=== PATIENT | male | born 1985 | race Caucasian/White ===

== ENCOUNTER 2019-11-12 11:24 | Inpatient (IN) | payer OTHER ==
--- NOTE | 2019-11-12 11:43 | BHS.RME ---
Substance Use & Tx History - Substance Use History Alcohol Substance amount: 6 pints Hennesy, 2 x 40 ounce beer Frequency of use: Daily Date of Last Use: 11/11/19 Cannabis Substance amount: 2-3 blunts Frequency of use: Daily Substance route: Smoking Date of Last Use: 11/10/19 Nicotine Substance amount: 2 cigs Frequency of use: Daily Date of Last Use: 11/12/19 Physical/Psych/Mental Status - Behavior General Behavior: Decreased activity - Cooperativeness Cooperativeness: Cooperative - Thinking Thought Processes: Tight Thought content: Future oriented - Physical Health Problems Is patient presently having any pain?: Yes (headache, when he left [facility], syncope) Does patient presently have any injuries (include location): No Does patient currently have a fever: No Is patient : No CIWA Nausea/Vomitin-Mild Nausea/No Vomiting Muscle Tremors: 4-Moderate,w/Arms Extend Anxiety: 4-Mod. Anxious/Guarded Agitation: 1-Slight > Activity Paroxysmal Sweats: No Perspiration Orientation: 0-Oriented Tacttile Disturbances: 0-None Auditory Disturbances: 1-Very Mild Visual Disturbances: 2-Mild Sensitivity Headache: 5-Severe CIWA-Ar Total Score: 18
--- NOTE | 2019-11-12 12:50 | HP ---
CIWA Score Nausea/Vomitin-Mild Nausea/No Vomiting Muscle Tremors: 4-Moderate,w/Arms Extend Anxiety: 4-Mod. Anxious/Guarded Agitation: 1-Slight > Activity Paroxysmal Sweats: No Perspiration Orientation: 0-Oriented Tacttile Disturbances: 0-None Auditory Disturbances: 1-Very Mild Visual Disturbances: 2-Mild Sensitivity Headache: 5-Severe CIWA-Ar Total Score: 18 - Admission Criteria OASAS Guidelines: Admission for Medically Managed Detox: Requires at least one of the followin. CIWA greater than 12 2. Seizures within the past 24 hours 3. Delirium tremens within the past 24 hours 4. Hallucinations within the past 24 hours 5. Acute intervention needed for co occurring medical disorder 6. Acute intervention needed for co occurring psychiatric disorder 7. Severe withdrawal that cannot be handled at a lower level of care (continued vomiting, continued diarrhea, abnormal vital signs) requiring intravenous medication and/or fluids 8. Admitting History and Physical - Admission Chief Complaint: Mr. Saldana is a 34 yo gentleman who presents to [facility] stating he is here "for detox, alcohol". History of Present Illness: Mr. Saldana is a 34 yo gentleman who presents to [facility] stating he is here "for detox, alcohol". He has had no prior admission to this or any other detox facility. PMH: ADHD PSH: none Psych: Bipolar on Remeron, Depakote: last dose last year. NO SI Substance use history Alcohol: 6 pints Henessey, Beer 2x40 ounce, daily, first use at the age of 16 y , last use yesterday. Black out last night. Was taken to [facility]. Marijuana: daily, 2-3 blunts, first use age 15, last use yesterday Nicotine: 2 cigs per day, last smoke yesterday Denies; opiate use Review of [facility] records 11/12: records: alcohol intoxication and abdominal pain. K 5.2, EtOH: 190, low RBC 4.5, high neut 79.2, lymph 12.8 (low) . CT abdomen: splenule. Unremarkable pancreas, kidneys, gallbladder, urinary bladder. Nonobstucted loops of bowel Admission ROS BHS - HPI Exam Limitations: No Limitations - Ebola screening Have you traveled outside of the country in the last 21 days: No Have you had contact with anyone from an Ebola affected area: No Have you been sick,other than usual withdrawal symptoms: No Do you have a fever: No - Review of Systems Constitutional: Unintentional Wgt. Loss (70 lb weight loss in one year) EENT: reports: Eye Pain Respiratory: reports: No Symptoms reported Cardiac: reports: No Symptoms Reported GI: reports: Nausea, Vomiting : reports: No Symptoms Reported Musculoskeletal: reports: Back Pain, Joint Pain Integumentary: reports: No Symptoms Reported Neuro: reports: Headache Endocrine: reports: No Symptoms Reported Hematology: reports: No Symptoms Reported Psychiatric: reports: No Sypmtoms Reported Patient History - Patient Medical History Hx Anemia: No Hx Asthma: No Hx Chronic Obstructive Pulmonary Disease (COPD): No Hx Cancer: No Hx Cardiac Disorders: No Hx Congestive Heart Failure: No Hx Hypertension: No Hx Hypercholesterolemia: No Hx Pacemaker: No HX Cerebrovascular Accident: No Hx Seizures: No Hx Dementia: No Hx Diabetes: No Hx Gastrointestinal Disorders: Yes (abdominal pain presently) Hx Liver Disease: No Hx Genitourinary Disorders: No Hx Sexually Transmitted Disorders: No Hx Renal Disease (ESRD): No Hx Thyroid Disease: No Hx Human Immunodeficiency Virus (HIV): No Hx Hepatitis C: No Hx Depression: No Hx Suicide Attempt: No Hx Bipolar Disorder: Yes (Remeron and Depakote in 2019) Hx Schizophrenia: No Other Medical History: ADHD, under control, off meds - Patient Surgical History Past Surgical History: No - PPD History PPD to be Administered?: Yes - Smoking Cessation Smoking history: Current every day smoker Have you smoked in the past 12 months: Yes Aproximately how many cigarettes per day: 2 Initiated information on smoking cessation: Yes 'Breaking Loose' booklet given: 11/12/19 - Substances abused Alcohol Substance route: Oral Amount used: 6 pints Luanne Age of first use: 16 Date of last use: 11/11/19 Marijuana/Hashish Frequency: Daily Amount used: 2-3 blunts Age of first use: 15 Date of last use: 11/11/19 Admission Physical Exam [facility] - Physical General Appearance: Yes: Mild Distress HEENTM: Yes: Hearing grossly Normal, Normocephalic, Normal Voice Respiratory: Yes: Lungs Clear, Normal Breath Sounds Neck: Yes: Within Normal Limits Breast: Yes: Breast Exam Deferred Cardiology: Yes: Regular Rate, S1, S2, Bradycardia Abdominal: Yes: Tenderness (epigastric) Genitourinary: Yes: Other (deferred) Back: Yes: Normal Inspection Musculoskeletal: Yes: Within Normal Limits Extremities: Yes: Within Normal Limits Neurological: Yes: hog worker II-XII NML intact, Finger to Nose (No drift UE, nl Light touch arms and legs, REflexes: 2-3 + symmetric, no Malik's and no extensor plantar, normal finger to nose) Lymphatic: Yes: Within Normal Limits - Diagnostic (1) Alcohol abuse with intoxication, uncomplicated Current Visit: Yes Status: Acute (2) Cannabis abuse Current Visit: Yes Status: Chronic (3) Nicotine abuse Current Visit: Yes Status: Acute (4) Abdominal pain Current Visit: Yes Status: Acute Qualifiers: Abdominal location: epigastric Qualified Code(s): R10.13 - Epigastric pain Comment: was in ED today [facility], [place] abd done, no acute abnoramlity (5) Bipolar 1 disorder Current Visit: No Status: Chronic (6) ADHD Current Visit: No Status: Chronic Cleared for Admission S - Detox or Rehab [facility] Level of Care: Medically Managed Breathalyzer - Breathalyzer Breathalyzer: 0.006 Urine Drug Screen - Test Device Lot number: [id number] Expiration date: 08/16/21 - Control Is test valid?: Yes - Results Drug screen NEGATIVE: No Urine drug screen results: THC-Marijuana, MOP-Opiates Inpatient Rehab Admission - Rehab Decision to Admit Inpatient rehab admission?: No
[2019-11-12] MEDS ORDERED: MENTHOL/PHENOL 1 EACH UD MM PRN (13:04)
[2019-11-12] MEDS ORDERED: MAGNESIUM HYDROX 2400MG/30ML ORAL SUSPENSION 30 ML CUP PO PRN (13:04)
[2019-11-12] MEDS ORDERED: chlordiazePOXIDE HCL 25 MG CAPSULE PO PRN (13:04)
[2019-11-12] MEDS ORDERED: MAG HYDROX/AL HYDROX/SIMETH 30 ML UNIT-DOSE CUP PO PRN (13:04)
[2019-11-12] MEDS ORDERED: METHOCARBAMOL 500 MG TABLET PO PRN (13:04)
[2019-11-12] MEDS ORDERED: BISMUTH SUBSALICYLATE 524 MG/30 ML UD PO PRN (13:04)
[2019-11-12] MEDS ORDERED: IBUPROFEN 400 MG TABLET (FP) PO PRN (13:04)
[2019-11-12] MEDS ORDERED: MAGNESIUM CITRATE 300 ML BOTTLE PO PRN (13:04)
[2019-11-12] MEDS ORDERED: NICOTINE POLACRILEX 2 MG GUM BUC PRN (13:04)
[2019-11-12] MEDS ORDERED: MELATONIN 5 MG TABLETS PO PRN (13:04)
[2019-11-12] MEDS ORDERED: ACETAMINOPHEN 325 MG TABLET (FP) PO PRN ×2 (13:04)
[2019-11-12 13:38] VITALS: BMI 19.7
[2019-11-12] MEDS: CLOTRIMAZOLE 1% CREAM 15 GM TUBE TP SCH ×2 (16:02→22:22)
[2019-11-12 16:36] LABS: HEMATOCRIT 43.7 % (35.4-49); HEMOGLOBIN 14.7 GM/dL (11.7-16.9); MCH 32.3 pg (25.7-33.7); MCHC 33.7 g/dl (32.0-35.9); MEAN CELL VOLUME 95.9 fl (80-96); MEAN PLT VOLUME 8.4 fl (7.5-11.1); PLATELET COUNT 310 K/MM3 (134-434); RBC 4.56 M/mm3 (4.00-5.60); RDW 13.4 % (11.9-15.9); WHITE BLOOD COUNT 7.5 K/mm3 (4.0-10.0)
[2019-11-12 16:48] LABS: ALBUMIN 4.2 g/dl (3.4-5.0); BILIRUBIN,TOTAL 0.6 mg/dL (0.2-1); BLOOD UREA NITROGEN 12.4 mg/dL (7-18); CALCIUM 9.4 mg/dL (8.5-10.1); CREATININE 1.1 mg/dL (0.55-1.3); POTASSIUM 4.5 mmol/L (3.5-5.1); TOT PROT 7.8 g/dl (6.4-8.2)
[2019-11-12] MEDS: chlordiazePOXIDE HCL 25 MG CAPSULE PO SCH ×2 (17:26→22:20)
[2019-11-12] MEDS: THIAMINE HCL 100 MG TABLET (FP) PO SCH (22:20)
[2019-11-13] MEDS: chlordiazePOXIDE HCL 25 MG CAPSULE PO SCH ×4 (06:20→22:12)
[2019-11-13] MEDS: PRENATAL VITAMINS W/ FOLIC ACID TABLET (FP) PO SCH (10:16)
[2019-11-13] MEDS: CLOTRIMAZOLE 1% CREAM 15 GM TUBE TP SCH ×2 (10:16→22:15)
--- NOTE | 2019-11-13 10:52 | PN ---
S CIWA - CIWA Score Nausea/Vomitin-Mild Nausea/No Vomiting Muscle Tremors: 2 Anxiety: 2 Agitation: 2 Paroxysmal Sweats: 2 Orientation: 0-Oriented Tacttile Disturbances: 0-None Auditory Disturbances: 0-None Visual Disturbances: 0-None Headache: 2-Mild CIWA-Ar Total Score: 11 BHS Progress Note (SOAP) Subjective: says he is feeling fine today. Admitted yesterday for alcohol detox O: Vital Signs - 24 hr 11/12/19 11/12/19 11/12/19 13:24 14:41 16:49 Temperature 97.6 F 97.9 F 98.1 F Pulse Rate 57 L 55 L 66 Respiratory 16 14 16 Rate Blood Pressure 130/78 126/80 139/78 11/12/19 11/13/19 11/13/19 20:52 00:30 03:30 Temperature 97.1 F L Pulse Rate 55 L Respiratory 16 16 16 Rate Blood Pressure 140/79 11/13/19 07:11 Temperature Pulse Rate 63 Respiratory 16 Rate Blood Pressure 114/74 Laboratory Tests 11/12/19 11/12/19 11/12/19 13:15 13:15 13:15 WBC 7.5 RBC 4.56 Hgb 14.7 Hct 43.7 MCV 95.9 MCH 32.3 MCHC 33.7 RDW 13.4 Plt Count 310 MPV 8.4 Sodium 139 Potassium 4.5 Chloride 105 Carbon Dioxide 28 Anion Gap 6 L BUN 12.4 Creatinine 1.1 Est GFR (CKD-EPI)AfAm 102.40 Est GFR (CKD-EPI)NonAf 88.36 Random Glucose 89 Calcium 9.4 Total Bilirubin 0.6 AST 23 ALT 23 Alkaline Phosphatase 68 Total Protein 7.8 Albumin 4.2 RPR Titer Nonreactive a/p Alcohol detox protocol- pt states doing well on protocol
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
[2019-11-13] MEDS: hydrOXYzine PAMOATE 25 MG CAPSULE (FP) PO PRN (14:04)
[2019-11-13] MEDS ORDERED: SUVOREXANT 10 MG TABLET PO PRN (22:00)
[2019-11-13] MEDS: THIAMINE HCL 100 MG TABLET (FP) PO SCH (22:13)
[2019-11-14] MEDS: chlordiazePOXIDE HCL 25 MG CAPSULE PO SCH ×4 (05:33→22:05)
[2019-11-14] MEDS: PRENATAL VITAMINS W/ FOLIC ACID TABLET (FP) PO SCH (10:41)
[2019-11-14] MEDS: CLOTRIMAZOLE 1% CREAM 15 GM TUBE TP SCH ×2 (10:41→22:05)
[2019-11-14] MEDS: hydrOXYzine PAMOATE 25 MG CAPSULE (FP) PO PRN (10:44)
--- NOTE | 2019-11-14 11:51 | PN ---
S CIWA - CIWA Score Nausea/Vomitin-No Nausea/No Vomiting Muscle Tremors: 1-None Visible, but [place] Anxiety: 1-Mildly Anxious Agitation: 0-Normal Activity Paroxysmal Sweats: 2 Orientation: 0-Oriented Tacttile Disturbances: 1-Very Mild Itch/Numbness Auditory Disturbances: 0-None Visual Disturbances: 0-None Headache: 0-None Present CIWA-Ar Total Score: 5 BHS Progress Note (SOAP) Subjective: feeling better , but with interrupted sleep, sweats Objective: 11/14/19 11:47 Vital Signs Temperature 98.0 F 11/14/19 08:57 Pulse Rate 62 11/14/19 08:57 Respiratory Rate 17 11/14/19 08:57 Blood Pressure 115/77 11/14/19 08:57 O2 Sat by Pulse Oximetry (%) Laboratory Tests 11/12/19 11/12/19 11/12/19 13:15 13:15 13:15 WBC 7.5 RBC 4.56 Hgb 14.7 Hct 43.7 MCV 95.9 MCH 32.3 MCHC 33.7 RDW 13.4 Plt Count 310 MPV 8.4 Sodium 139 Potassium 4.5 Chloride 105 Carbon Dioxide 28 Anion Gap 6 L BUN 12.4 Creatinine 1.1 Est GFR (CKD-EPI)AfAm 102.40 Est GFR (CKD-EPI)NonAf 88.36 Random Glucose 89 Calcium 9.4 Total Bilirubin 0.6 AST 23 ALT 23 Alkaline Phosphatase 68 Total Protein 7.8 Albumin 4.2 RPR Titer Nonreactive HIV 1&2 Antibody Screen HIV P24 Antigen 11/13/19 07:40 WBC RBC Hgb Hct MCV MCH MCHC RDW Plt Count MPV Sodium Potassium Chloride Carbon Dioxide Anion Gap BUN Creatinine Est GFR (CKD-EPI)AfAm Est GFR (CKD-EPI)NonAf Random Glucose Calcium Total Bilirubin AST ALT Alkaline Phosphatase Total Protein Albumin RPR Titer HIV 1&2 Antibody Screen Negative HIV P24 Antigen Negative pt aox3 in nad ambulating Assessment: 11/14/19 11:48 withdrawall sx's Plan: cont detox increase fluids
[2019-11-14] MEDS: THIAMINE HCL 100 MG TABLET (FP) PO SCH (22:05)
[2019-11-15] MEDS ORDERED: chlordiazePOXIDE HCL 10 MG CAPSULE PO PRN
[2019-11-15] MEDS: chlordiazePOXIDE HCL 10 MG CAPSULE PO SCH ×2 (05:31→10:19)
[2019-11-15] MEDS: PRENATAL VITAMINS W/ FOLIC ACID TABLET (FP) PO SCH (10:18)
[2019-11-15] MEDS: CLOTRIMAZOLE 1% CREAM 15 GM TUBE TP SCH (10:19)
[2019-11-15 11:23] VITALS: BP 129/76; PULSE 75; TEMP 97.7
--- NOTE | 2019-11-15 18:26 | DS ---
[facility] Detox Discharge Summary Admission Date: 11/12/19 Discharge Date: 11/15/19 - History Present History: Alcohol Dependence, Cannabis Dependence Additional Comments: PATIENT DENIES CURRENT WITHDRAWAL / DETOX SYMPTOMS AND REPORTS THAT HE FEELS WELL OVERALL AT TIME OF DISCHARGE FROM DETOX UNIT. PATIENT WILL FOLLOW-UP AT ' [facility] FOR AFTERCARE. PATIENT WAS DISCHARGED FROM DETOX UNIT IN STABLE MEDICAL CONDITION. Pertinent Past History: ADHD, Bipolar Disorder, Nicotine Dependence, Abdominal Pain, Bipolar Disorder. - Physical Exam Results Vital Signs: Vital Signs Temperature 97.7 F 11/15/19 11:23 Pulse Rate 75 11/15/19 11:23 Respiratory Rate 16 11/15/19 11:23 Blood Pressure 129/76 11/15/19 11:23 O2 Sat by Pulse Oximetry (%) Pertinent Admission Physical Exam Findings: WITHDRAWAL SYMPTOMS. Vital Signs Temperature 97.7 F 11/15/19 11:23 Pulse Rate 75 11/15/19 11:23 Respiratory Rate 16 11/15/19 11:23 Blood Pressure 129/76 11/15/19 11:23 O2 Sat by Pulse Oximetry (%) Laboratory Tests 11/12/19 11/12/19 11/12/19 13:15 13:15 13:15 WBC 7.5 RBC 4.56 Hgb 14.7 Hct 43.7 MCV 95.9 MCH 32.3 MCHC 33.7 RDW 13.4 Plt Count 310 MPV 8.4 Sodium 139 Potassium 4.5 Chloride 105 Carbon Dioxide 28 Anion Gap 6 L BUN 12.4 Creatinine 1.1 Est GFR (CKD-EPI)AfAm 102.40 Est GFR (CKD-EPI)NonAf 88.36 Random Glucose 89 Calcium 9.4 Total Bilirubin 0.6 AST 23 ALT 23 Alkaline Phosphatase 68 Total Protein 7.8 Albumin 4.2 RPR Titer Nonreactive HIV 1&2 Antibody Screen HIV P24 Antigen 11/13/19 07:40 WBC RBC Hgb Hct MCV MCH MCHC RDW Plt Count MPV Sodium Potassium Chloride Carbon Dioxide Anion Gap BUN Creatinine Est GFR (CKD-EPI)AfAm Est GFR (CKD-EPI)NonAf Random Glucose Calcium Total Bilirubin AST ALT Alkaline Phosphatase Total Protein Albumin RPR Titer HIV 1&2 Antibody Screen Negative HIV P24 Antigen Negative LABS NOTED. - Treatment Hospital Course: Detox Protocol Followed, Detoxed Safely, Responded well, Discharged Condition Good Patient has Accepted a Rehab Referral to: PT. [facility]) FOR AFTERCARE. - Medication Discharge Medications: Ambulatory Orders NK [No Known Home Medication] 11/12/19 - Diagnosis (1) Abdominal pain Status: Acute Qualifiers: Abdominal location: epigastric Qualified Code(s): R10.13 - Epigastric pain (2) Alcohol abuse with intoxication, uncomplicated Status: Acute (3) Cannabis dependence Status: Acute (4) Nicotine abuse Status: Acute (5) ADHD Status: Chronic Qualifiers: Attention deficit-hyperactivity disorder type: unspecified Qualified Code(s ): F90.9 - Attention-deficit hyperactivity disorder, unspecified type (6) Bipolar 1 disorder Status: Chronic (7) Substance induced mood disorder Status: Acute (8) Substance-induced sleep disorder Status: Acute - AMA Did Patient Leave Against Medical Advice: No
[2019-11-16] MEDS ORDERED: chlordiazePOXIDE HCL 10 MG CAPSULE PO SCH (05:00)
[2019-11-17] MEDS ORDERED: chlordiazePOXIDE HCL 10 MG CAPSULE PO ONE (05:00)
== END 2019-11-15 11:31 | disposition home or self-care (01) | DRG 775 ==
LOC: YASAS 11:24 → Y6N 13:45
PROVIDERS: ADMIT Allergy & Immunology; ATTEND Allergy & Immunology
PROC: HZ2ZZZZ Detoxification Services for Substance Abuse Treatment (ICD-10-PCS; principal; 2019-11-12)
DX: F10.230 Alcohol dependence with withdrawal, uncomplicated (principal); F12.20 Cannabis dependence, uncomplicated; F17.210 Nicotine dependence, cigarettes, uncomplicated; F19.282 Other psychoactive substance dependence with psychoactive substance-induced sleep disorder; F19.24 Other psychoactive substance dependence with psychoactive substance-induced mood disorder; F31.9 Bipolar disorder, unspecified; F90.9 Attention-deficit hyperactivity disorder, unspecified type; R10.13 Epigastric pain; Z91.410 Personal history of adult physical and sexual abuse; Z62.810 Personal history of physical and sexual abuse in childhood; Z56.0 Unemployment, unspecified; Z59.0 Homelessness
CPT/HCPCS: 36415; 80053; 85027; 86593; 87389